=== PATIENT | male | born 1985 | race Caucasian/White ===

== ENCOUNTER 2023-11-20 18:28 | Observation (INO) | payer SELFPAY ==
[2023-11-20 19:05] LABS: BASOPHIL % 0.2 % (0.2-1.2); Basophil (Absolute #) 0.03 x10^3/uL (0.01-0.08); Eosinophil % 0.1 % (0.8-7.0); Eosinophil (Absolute #) 0.02 x10^3/uL (0.04-0.54); IMMATURE GRAN # 0.16 x10^3u/L (0.001-0.031); IMMATURE GRAN % 0.9 % (0.001-0.429); Lymphocyte (Absolute #) 0.65 x10^3/uL (1.32-3.57); Lymphocytes % 3.5 % (21.8-53.1); Mean Cell Volume 87.6 fL (79.0-92.2); Mean Corpuscular Hemoglobin 29.2 pg (25.7-32.2); Mean Corpuscular Hgb Concent. 33.3 g/dL (32.3-36.5); Mean Platelet Volume 9.3 fL (9.4-12.4); Monocyte (Absolute #) 0.68 x10^3/uL (0.30-0.82); Monocytes % 3.7 % (5.3-12.2); Neutrophil % 91.6 % (34.0-67.9); Platelet Count 293 x10^3/uL (163-337); Red Blood Count 4.45 x10^6/uL (4.63-6.08); Red Cell Distribution Width 13.9 % (11.6-14.4); White Blood Count 18.5 x10^3/uL (4.23-9.07)
[2023-11-20] MEDS ORDERED: TYLENOL 325 MG ONE (19:08)
[2023-11-20] MEDS ORDERED: Sodium Chloride 100ML MINI-BAG PLUS 100 ML IV ONE (19:09)
[2023-11-20] MEDS ORDERED: Sodium Chloride 0.9% 1000 ML 1,000 ML ONE (19:09)
[2023-11-20] MEDS ORDERED: PIPERACILLIN/TAZOBACTAM IV ONE (19:09)
[2023-11-20 19:11] LABS: ALBUMIN 3.7 g/dL (3.5-5.0); ANION GAP 12.7 MEQ/L (5-15); BILIRUBIN,TOTAL 0.4 mg/dL (0.2-1.3); Calcium 8.8 mg/dL (8.4-10.2); Creatinine 1 1.32 mg/dL (0.66-1.25); EST GLOMERULAR FILTRATION RATE 71.2 ML/MIN; Total Protein 6.9 g/dL (6.3-8.2)
[2023-11-20] MEDS: Sodium Chloride 0.9% 1000 ML 1,000 ML IV STA (19:13)
[2023-11-20] MEDS: TYLENOL 325 MG PO STA (19:13)
[2023-11-20] MEDS: PIPERACILLIN/TAZOBACTAM 3.375 GM in Sodium Chloride 100ML MINI-BAG PLUS 100 ML IV ONE (19:13)
[2023-11-20 19:21] LABS: VBG CARBOXYHEMOGLOBIN 6.9 % T HGB (0.0-6.9); VBG HEMOGLOBIN 13.5; VBG O2 SATURATION 45.6 (95-100); VBG pH 7.38 (7.32-7.42)
[2023-11-20] MEDS ORDERED: Zofran 4 MG/2 ML VIAL ONE (19:23)
[2023-11-20] MEDS ORDERED: MORPHINE SULFATE 4 MG INJ ONE (19:23)
[2023-11-20] MEDS: Zofran 4 MG/2 ML VIAL IV ONE (19:25)
[2023-11-20] MEDS: MORPHINE SULFATE 4 MG INJ IV ONE (19:25)
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
[2023-11-20] MEDS ORDERED: Hydromorphone 1 mg/ml Injection ONE (20:35)
[2023-11-20] MEDS: Hydromorphone 1 mg/ml Injection IV ONE (20:36)
[2023-11-20] MEDS ORDERED: PROTONIX 40 MG IV IV ONE (20:40)
[2023-11-20] MEDS: PROTONIX 40 MG IV IV ONE (20:41)
[2023-11-20] MEDS ORDERED: Zofran 4 MG/2 ML VIAL IV PRN (21:14)
[2023-11-20] MEDS ORDERED: MORPHINE SULFATE 4 MG INJ IV PRN (21:14)
[2023-11-20] MEDS ORDERED: Docusate Sodium 100 MG PO PRN (21:38)
[2023-11-20] MEDS ORDERED: PHARMACY DOSING REQUIRED: VANCOMYCIN IV SCH (21:45)
[2023-11-20] MEDS: VANCOMYCIN 1 GRAM/200 ML BAG 1 GM/200 ML PIGGYBACK IV SCH (21:48)
[2023-11-20] MEDS: Sodium Chloride 0.9% 1000 ML 1,000 ML IV SCH (21:48)
[2023-11-20] MEDS: NICODERM CQ 14 MG TOP SCH (22:17)
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
[2023-11-21] MEDS ORDERED: PIPERACILLIN/TAZOBACTAM IV ONE ×2 (00:05→05:06)
[2023-11-21] MEDS ORDERED: Sodium Chloride 100ML MINI-BAG PLUS 100 ML IV ONE ×2 (00:06→05:07)
[2023-11-21] MEDS: PIPERACILLIN/TAZOBACTAM 3.375 GM in Sodium Chloride 100ML MINI-BAG PLUS 100 ML IV SCH (00:10)
[2023-11-21] MEDS: Hydromorphone 1 mg/ml Injection IV PRN (02:22)
[2023-11-21 07:23] LABS: Absolute Neutrophil Ct (ANC) 10.56 x10^3/uL (1.78-5.38); BASOPHIL % 0.2 % (0.2-1.2); Basophil (Absolute #) 0.02 x10^3/uL (0.01-0.08); Eosinophil % 0.6 % (0.8-7.0); Eosinophil (Absolute #) 0.07 x10^3/uL (0.04-0.54); Hematocrit 33.4 % (40.1-51.0); IMMATURE GRAN # 0.08 x10^3u/L (0.001-0.031); IMMATURE GRAN % 0.6 % (0.001-0.429); Lymphocytes % 8.9 % (21.8-53.1); Mean Cell Volume 88.6 fL (79.0-92.2); Mean Corpuscular Hemoglobin 29.2 pg (25.7-32.2); Mean Corpuscular Hgb Concent. 32.9 g/dL (32.3-36.5); Mean Platelet Volume 9.2 fL (9.4-12.4); Monocyte (Absolute #) 0.53 x10^3/uL (0.30-0.82); Monocytes % 4.3 % (5.3-12.2); Neutrophil % 85.4 % (34.0-67.9); Platelet Count 235 x10^3/uL (163-337); Red Blood Count 3.77 x10^6/uL (4.63-6.08); Red Cell Distribution Width 14.2 % (11.6-14.4); White Blood Count 12.4 x10^3/uL (4.23-9.07)
[2023-11-21 07:49] LABS: ALBUMIN 3.2 g/dL (3.5-5.0); BILIRUBIN,TOTAL 0.2 mg/dL (0.2-1.3); Calcium 8.4 mg/dL (8.4-10.2); Creatinine 1 1.08 mg/dL (0.66-1.25); EST GLOMERULAR FILTRATION RATE 90.6 ML/MIN; Potassium 3.7 mmol/L (3.5-5.1); Total Protein 6.3 g/dL (6.3-8.2)
[2023-11-21] MEDS: TYLENOL 325 MG PO PRN (08:07)
[2023-11-21] MEDS: Acidophilus TABLET PO SCH (10:33)
[2023-11-21] MEDS: VANCOMYCIN 1 GRAM/200 ML BAG 1 GM/200 ML PIGGYBACK IV SCH (10:34)
[2023-11-21] MEDS: ENOXAPARIN SODIUM SQ SCH (10:34)
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
[2023-11-21] MEDS: NICODERM CQ 14 MG TOP SCH (22:20)
[2023-11-22 05:01] LABS: Hematocrit 33.6 % (40.1-51.0); Hemoglobin 11.1 g/dL (13.7-17.5); Mean Cell Volume 87.5 fL (79.0-92.2); Mean Corpuscular Hemoglobin 28.9 pg (25.7-32.2); Mean Platelet Volume 9.3 fL (9.4-12.4); Platelet Count 242 x10^3/uL (163-337); Red Blood Count 3.84 x10^6/uL (4.63-6.08); Red Cell Distribution Width 14.2 % (11.6-14.4); White Blood Count 11.6 x10^3/uL (4.23-9.07)
[2023-11-22 05:21] LABS: ANION GAP 10.6 MEQ/L (5-15); Calcium 8.7 mg/dL (8.4-10.2); Creatinine 1 0.99 mg/dL (0.66-1.25); EST GLOMERULAR FILTRATION RATE 100.6 ML/MIN
[2023-11-22 07:22] VITALS: RESP 16
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
[2023-11-22] MEDS: ENOXAPARIN SODIUM SQ SCH (09:12)
[2023-11-22] MEDS: TROUGH DRUG LEVELS IJ ONE (10:15)
[2023-11-22] MEDS: VANCOMYCIN 1.25 GM/250 ML BAG 1.25 GM/250 ML PIGGYBACK IV SCH (10:15)
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
[2023-11-22] MEDS ORDERED: VANCOMYCIN 1.25 GM/250 ML BAG 1.25 GM/250 ML PIGGYBACK IV SCH (11:00)
--- NOTE | 2023-11-22 11:25 | XRAY ---
Indication: Cellulitis edema. 2-dimensional sonogram and color Doppler imaging major venous vessels right leg performed. Comparison: None Lesser and greater saphenous veins demonstrates occluding and nonoccluding echogenicities. No thrombus seen in the deep venous vessels. The deep venous vessels demonstrate normal compressibility and normal venous waveforms. Targeted soft tissue ultrasound around ankle demonstrates moderate subcutaneous soft tissue swelling/edema without focal solid/cystic mass or abnormal fluid collection. Impression: 1. Occluding and nonoccluding thrombosis in the greater and lesser saphenous veins. Rule out thrombophlebitis. 2. Right leg negative for DVT. 3. Nonspecific soft tissue swelling/edema around ankle.
[2023-11-22 12:25] VITALS: BP 144/72; PULSE 85; TEMP 97.7; O2SAT 100
[2023-11-22] MEDS ORDERED: Ecotrin 325 MG PO SCH (17:00)
== END 2023-11-22 16:51 | disposition home or self-care (01) ==
LOC: ED 18:28 → MED SURG 21:13
PROVIDERS: ADMIT Internal Medicine; ATTEND Internal Medicine
DX: A41.9 Sepsis, unspecified organism (principal); L03.115 Cellulitis of right lower limb; R50.9 Fever, unspecified; I89.0 Lymphedema, not elsewhere classified; D72.829 Elevated white blood cell count, unspecified; L90.5 Scar conditions and fibrosis of skin; R60.0 Localized edema; F17.200 Nicotine dependence, unspecified, uncomplicated; G40.909 Epilepsy, unspecified, not intractable, without status epilepticus
CPT/HCPCS: 29580; 36000; 36415; 80048; 80053; 80202; 82805; 83605; 84145; 85025; 85027; 87040; 93041; 93971; 94760; 96365; 96374; 96375; 99204; 99285; G0378; J1170; J1650; J2270; J2405; A9270-GY; J3370